=== PATIENT | female | born 1970 | race Caucasian/White ===

== ENCOUNTER 2021-06-10 13:54 | Outpatient (CLI) | payer BC | END 2021-06-10 13:55 | disposition home or self-care (01) | LOC: CSHMAMMO 13:54 | PROVIDERS: ATTEND Physician Assistant | DX: Z12.31 Encounter for screening mammogram for malignant neoplasm of breast (principal); Z13.820 Encounter for screening for osteoporosis; Z78.0 Asymptomatic menopausal state; R10.9 Unspecified abdominal pain; M81.0 Age-related osteoporosis without current pathological fracture; M85.89 Other specified disorders of bone density and structure, multiple sites; Z80.3 Family history of malignant neoplasm of breast | CPT/HCPCS: 77063; 77067; 77080 ==

== ENCOUNTER 2023-03-03 11:02 | Outpatient (CLI) | payer BC | END 2023-03-03 11:03 | disposition home or self-care (01) | LOC: CSHMAMMO 11:02 | PROVIDERS: ATTEND Physician Assistant | DX: Z12.31 Encounter for screening mammogram for malignant neoplasm of breast (principal); M81.0 Age-related osteoporosis without current pathological fracture; M85.88 Other specified disorders of bone density and structure, other site; Z80.3 Family history of malignant neoplasm of breast | CPT/HCPCS: 77063; 77067; 77080 ==